=== PATIENT | male | born 1950 | race Caucasian/White ===

== ENCOUNTER 2017-08-25 07:08 | Day surgery (SDC) | payer MEDICARE, OTHER ==
[~2017-08-25 07:08] MED LIST: DIAZEPAM 5 MG TAB PO; DIPHENHYDRAMINE 50 MG CAP PO; FAMOTIDINE 20 MG TAB PO; SOD CHLORIDE 0.45% 1,000 ML IV
[2017-08-25 08:14] LABS: ADD MAN DIFF? NO
[2017-08-25 08:25] LABS: BASOPHIL # 0.1 10^3/ul (0.0-0.1); BASOPHILS % 1.9 % (0.0-2.0); EOSINOPHILS # 0.4 10^3/ul (0.0-0.5); EOSINOPHILS % 4.9 % (0.0-7.0); HEMOGLOBIN 15.2 g/dl (14.0-18.0); LYMPHOCYTES # 2.6 10^3/ul (0.8-2.9); LYMPHOCYTES % 35.3 % (15.0-51.0); MEAN CORPUSCULAR HEMOGLOBIN 31.3 pg (29.0-33.0); MEAN CORPUSCULAR HGB CONC 33.8 g/dl (32.0-37.0); MEAN CORPUSCULAR VOLUME 92.6 fl (82.0-101.0); MEAN PLATELET VOLUME 10.4 fl (7.4-10.4); MONOCYTE # 0.7 10^3/ul (0.3-0.9); MONOCYTES % 9.8 % (0.0-11.0); NEUTROPHIL # 3.5 10^3/ul (1.6-7.5); PLATELET COUNT 285 10^3/UL (140-415); RED BLOOD COUNT 4.86 10^6/ul (4.70-6.10); RED CELL DISTRIBUTION WIDTH 13.8 % (11.5-14.5)
[2017-08-25 08:25] LABS: WHITE BLOOD COUNT 7.3 10^3/ul (4.8-10.8)
[2017-08-25 08:50] LABS: ANION GAP 16 (8-16); CARBON DIOXIDE 25 mmol/L (21-31); CHLORIDE 108 mmol/L (97-110); CHOL/HDL RATIO 3.4 RATIO; CHOLESTEROL 187 mg/dl (100-200); GLUCOSE 98 mg/dl (70-220); HDL CHOLESTEROL 54 mg/dl (30-78); LDL CHOLESTEROL,CALCULATED 105 mg/dl; TRIGLYCERIDES 139 mg/dl (0-149)
[2017-08-25 08:57] LABS: BLOOD UREA NITROGEN 15 mg/dl (7-20); CREATININE 0.78 mg/dl (0.61-1.24); POTASSIUM 4.4 mmol/L (3.5-5.1); SODIUM 145 mmol/L (135-144)
[2017-08-25 09:00] LABS: INR 1.02; PROTIME 13.5 Sec (11.9-14.9); PT RATIO 1.1
[2017-08-25 09:01] LABS: PARTIAL THROMBOPLASTIN TIME 30.6 Sec (25.0-35.0)
[2017-08-25] MEDS ORDERED: MIDAZOLAM 1 MG/ML 2 ML INJ (09:33)
[2017-08-25] MEDS ORDERED: FENTAnyl 50 MCG/ML VIAL (09:33)
[2017-08-25] MEDS ORDERED: IODIXANOL LOCM 100 ML BTL (10:13)
[2017-08-25] MEDS ORDERED: LIDOCAINE 1% (MDV) 20 ML INJ (10:13)
[2017-08-25] MEDS ORDERED: ONDANSETRON 4 MG INJ IV (10:30)
[2017-08-25] MEDS ORDERED: ACETAMINOPHEN 325 MG TAB PO (10:30)
[2017-08-25] MEDS ORDERED: morphine 2 MG INJ IV (10:30)
[2017-08-25] MEDS ORDERED: AL HYDROX/MG HYDROX/SIMETH 30 ML CUP PO (10:30)
[2017-08-25] MEDS: SOD CHLORIDE 0.9% 1,000 ML IV (10:37)
== END 2017-08-25 15:08 | disposition home or self-care (01) ==
LOC: SDS 07:08
DX: I25.10 Atherosclerotic heart disease of native coronary artery without angina pectoris (principal); Z95.1 Presence of aortocoronary bypass graft; I34.0 Nonrheumatic mitral (valve) insufficiency
CPT/HCPCS: 71045; 80048; 80061; 85025; 85610; 85730; 93005; 93459

== ENCOUNTER 2017-11-12 08:36 | Day surgery (SDC) | payer MEDICARE, OTHER ==
[2017-11-12] MEDS ORDERED: ROCURONIUM 50 MG INJ (10:09)
[2017-11-12] MEDS ORDERED: GLYCOPYRROLATE 1 MG INJ (10:09)
[2017-11-12] MEDS ORDERED: LIDOCAINE 2% (SDV) 5 ML INJ (10:09)
[2017-11-12] MEDS ORDERED: SUCCINYLCHOLINE CHLORIDE 100 MG/5 ML SYG IV (10:09)
[2017-11-12] MEDS ORDERED: NEOSTIGMINE 3 MG/3 ML SYRINGE ×2 (10:09→11:47)
[2017-11-12] MEDS ORDERED: PROPOFOL 20 ML (10:09)
[2017-11-12] MEDS ORDERED: MEPERIDINE 100 MG INJ (10:10)
[2017-11-12] MEDS ORDERED: BUPIVACAINE 0.5%/EPI (SDV) 30 ML INJ (10:11)
[2017-11-12] MEDS ORDERED: IOHEXOL 300MG/ML 30 ML BTL (10:11)
[2017-11-12] MEDS ORDERED: CEFAZOLIN 1 GM INJ (11:21)
[2017-11-12] MEDS ORDERED: metroNIDAZOLE 500 MG/NS (PMX) 100 ML IVPB (11:21)
[2017-11-12] MEDS: BUPIVACAINE 0.25%/EPI (MDV) 50 ML VIAL INJ (11:35)
[2017-11-12] MEDS: LIDOCAINE 1% (MPF) 30 ML INJ (11:35)
[2017-11-12] MEDS ORDERED: HYDROmorphONE (0.2 MG/ML) 10ML SYG IV ×2 (12:51→13:00)
[2017-11-12] MEDS: HYDROmorphONE (0.2 MG/ML) 10ML SYG IV ×2 (12:59→13:07)
[2017-11-12] MEDS ORDERED: ONDANSETRON 4 MG INJ IV (13:00)
[2017-11-12] MEDS ORDERED: LABETALOL HCL 20MG INJ IV (13:00)
[2017-11-12] MEDS ORDERED: hydrALAzine 20 MG INJ IV (13:00)
[2017-11-12] MEDS ORDERED: MIDAZOLAM 1 MG/ML 2 ML INJ IV (13:00)
[2017-11-12] MEDS ORDERED: EPHEDrine SULFATE 50 MG/5 ML SYG IV (13:00)
[2017-11-12] MEDS ORDERED: MEPERIDINE 25 MG INJ IV (13:00)
[2017-11-12] MEDS ORDERED: METOCLOPRAMIDE 10 MG INJ IV (13:00)
[2017-11-12] MEDS ORDERED: OXYCODONE/ACETAMINOPHEN (5/325) TAB PO ×2 (13:00)
[2017-11-12] MEDS ORDERED: FENTAnyl 50 MCG/ML VIAL IV ×3 (13:00)
[2017-11-12] MEDS ORDERED: DIPHENHYDRAMINE 50 MG INJ IV (13:00)
[2017-11-12] MEDS: CEFAZOLIN 2 GM/50 ML (PMX) 50 ML IVPB (13:06)
== END 2017-11-12 16:00 | disposition home or self-care (01) ==
LOC: SDS 08:36
DX: K80.20 Calculus of gallbladder without cholecystitis without obstruction (principal); K80.10 Calculus of gallbladder with chronic cholecystitis without obstruction; I25.10 Atherosclerotic heart disease of native coronary artery without angina pectoris
CPT/HCPCS: 47562; 88304

== ENCOUNTER 2018-08-12 13:02 | Day surgery (SDC) | payer MEDICARE, OTHER ==
[2018-08-12] MEDS: LIDOCAINE 1%/EPI (1:100,000) (MDV) 20 ML (15:07)
[2018-08-12] MEDS: BUPIVACAINE 0.25% (MPF) 30 ML INJ (15:07)
[2018-08-12] MEDS: CEFAZOLIN 2 GM/50 ML (PMX) 50 ML IVPB (15:52)
[2018-08-12] MEDS ORDERED: MIDAZOLAM 1 MG/ML 2 ML INJ (15:58)
[2018-08-12] MEDS ORDERED: ETOMIDATE 20 MG INJ (18:02)
[2018-08-12] MEDS ORDERED: GLYCOPYRROLATE 0.4 MG INJ (18:02)
[2018-08-12] MEDS ORDERED: PROPOFOL 20 ML (18:02)
[2018-08-12] MEDS ORDERED: LIDOCAINE 2% (SDV) 5 ML INJ (18:02)
[2018-08-12] MEDS ORDERED: CEFAZOLIN 1 GM INJ (18:02)
[2018-08-12] MEDS ORDERED: ROCURONIUM 50 MG INJ ×2 (18:02)
[2018-08-12] MEDS ORDERED: NEOSTIGMINE 10 MG INJ (18:02)
[2018-08-12] MEDS ORDERED: ONDANSETRON 4 MG INJ (18:03)
[2018-08-12] MEDS ORDERED: KETOROLAC 30 MG INJ (18:12)
[2018-08-12] MEDS ORDERED: hydrALAzine 20 MG INJ (18:26)
[2018-08-12] MEDS ORDERED: HYDROmorphONE 1 MG/5 ML IV SYRINGE IV ×2 (18:30)
[2018-08-12] MEDS ORDERED: LABETALOL HCL 20MG INJ IV (18:30)
[2018-08-12] MEDS ORDERED: FENTAnyl 50 MCG/ML VIAL IV (18:30)
[2018-08-12] MEDS ORDERED: DIPHENHYDRAMINE 50 MG INJ IV (18:30)
[2018-08-12] MEDS: hydrALAzine 20 MG INJ IV ×2 (18:32→18:39)
[2018-08-12] MEDS ORDERED: ONDANSETRON 4 MG INJ IV (19:00)
[2018-08-12] MEDS ORDERED: morphine 2 MG INJ IV (19:00)
[2018-08-12] MEDS ORDERED: HYDROCODONE/APAP (5/325) TAB PO (19:00)
[2018-08-12] MEDS: ONDANSETRON 4 MG INJ IV (19:03)
[2018-08-12] MEDS: KETOROLAC 30 MG INJ IV (19:04)
[2018-08-12] MEDS: MEPERIDINE 25 MG INJ IV (19:04)
[2018-08-12] MEDS: HYDROCODONE/APAP (5/325) TAB PO (19:30)
[2018-08-12] MEDS: METOCLOPRAMIDE 10 MG INJ IV (20:04)
== END 2018-08-12 20:48 | disposition home or self-care (01) ==
LOC: SDS 13:02
DX: K40.90 Unilateral inguinal hernia, without obstruction or gangrene, not specified as recurrent (principal); I10 Essential (primary) hypertension; I25.10 Atherosclerotic heart disease of native coronary artery without angina pectoris; E78.5 Hyperlipidemia, unspecified; J44.9 Chronic obstructive pulmonary disease, unspecified
CPT/HCPCS: 49650